=== PATIENT | male | born 1935 | race Caucasian/White ===

== ENCOUNTER 2016-11-05 10:02 | Observation (INO) | payer MEDICARE, OTHER ==
[~2016-11-05] VITALS: Ht 188 cm; Wt 86.4 kg
[~2016-11-05 10:02] MED LIST: AMLOPIDINE; AMLOPIDINE PO; ASPIRIN 81M81 MG/TA2 PO; BETAXOLOL HCL 55 ML OP; BETAXOLOL PO; CARAFATE 1GM1 G PO; CARAFATE PO; CIPRO; FERROUS SU325 MG/TAB PO; FLOMAX 0.40.4 MG/CAP PO; FOLIC ACID PO; LEVAQUIN 5500 MG/TA1 PO; LEVOTHYROXINE PO; LEVOTHYROXINE0.05 M1 PO; LISINOPRIL; LISINOPRIL20 MG PO; NEXIUM PO; NEXIUM40 MG PO; PROSCAR 5MG5 MG PO; PROSCAR PO; SUCRALFATE1 GM PO; VITAMIN C500 MG PO; ZOCOR; ZOCOR40 MG PO; ZYLOPRIM 100MG100 MG PO
[2016-11-05 12:04] VITALS: BP 152/85; PULSE 73; TEMP 97.6
[2016-11-05] MEDS ORDERED: ZOCOR 20MG20 MG PO (12:33)
[2016-11-05] MEDS ORDERED: MIRALAX PA17 GM/Dose PO (12:35)
[2016-11-05] MEDS ORDERED: MAG-OX 400400 MG/TAB PO (12:36)
[2016-11-05] MEDS ORDERED: ZANTAC 7575 MG PO (12:37)
[2016-11-05] MEDS ORDERED: MULTI VITAMINS1 TAB PO (12:38)
[2016-11-05] MEDS ORDERED: BREO IH (12:39)
[2016-11-05] MEDS ORDERED: RT SPIRIVA18 MCG IH (12:39)
[2016-11-05 14:20] VITALS: BP 159/86; PULSE 82; TEMP 97.7
[2016-11-05 17:43] VITALS: BP 136/88; PULSE 95; TEMP 98.5
[2016-11-05 21:12] VITALS: BP 126/81; PULSE 88; TEMP 98.2
[2016-11-06] VITALS (11 sets, daily range): BP systolic 105–167; BP diastolic 65–87; PULSE 61–104; TEMP 97.3–98
[2016-11-06 06:15] LABS: HEMATOCRIT 38.9 % (42.0-52.0); HEMOGLOBIN 13.2 g/dl (13.5-18.0); MEAN CELL VOLUME 91 fl (80.0-100.0); MEAN CORPUSCULAR HEMOGLOBIN 31 pg (27.0-31.0); MEAN CORPUSCULAR HGB CONC 34 g/dl (33.0-37.0); MEAN PLATELET VOLUME 8.8 fl (7.4-10.4); PLATELET COUNT 311 K/mm3 (130-400); RED BLOOD COUNT 4.26 M/mm3 (4.20-5.60); REDCELL DISTRIBUTION WIDTH-CV 13.1 % (11.5-14.5); WHITE BLOOD COUNT 5.5 K/mm3 (4.8-10.8)
[2016-11-06 06:31] LABS: ALBUMIN 3.6 gm/dL (3.5-5.0); BILIRUBIN,TOTAL 0.9 mg/dL (0.0-1.0); CALCIUM 9.7 mg/dL (8.4-10.2); CREATININE, serum 0.83 mg/dL (0.66-1.25); TOTAL PROTEIN 7.3 gm/dL (6.4-8.2)
[2016-11-06 07:56] LABS: INR 1.3 (0.8-3.0)
[2016-11-06 07:59] LABS: PH 7 (5-8); SQUAMOUS EPITHELIAL None Seen /hpf; URINE APPEARANCE Clear; URINE BACTERIA None Seen /hpf; URINE BILIRUBIN Negative (NEGATIVE); URINE BLOOD Negative (NEGATIVE); URINE COLOR Straw; URINE GLUCOSE Negative (NEGATIVE); URINE KETONE Negative (NEGATIVE); URINE RBC 0-2 /hpf; URINE WBC 0-2 /hpf
[2016-11-06 07:59] LABS: PARTIAL THROMBOPLASTIN TIME 29.8 SECONDS (26.0-37.0)
[2016-11-07] VITALS (7 sets, daily range): BP systolic 135–156; BP diastolic 79–94; PULSE 81–104; TEMP 97–98.2
[2016-11-07 05:15] LABS: PH 5 (5-8); SQUAMOUS EPITHELIAL 0-2 /hpf; URINE APPEARANCE Hazy; URINE BACTERIA None Seen /hpf; URINE BILIRUBIN Negative (NEGATIVE); URINE BLOOD Negative (NEGATIVE); URINE COLOR Amber; URINE GLUCOSE Negative (NEGATIVE); URINE KETONE Trace (NEGATIVE); URINE RBC 0-2 /hpf
[2016-11-07 06:03] LABS: HEMATOCRIT 38.1 % (42.0-52.0); HEMOGLOBIN 12.9 g/dl (13.5-18.0)
[2016-11-07 06:13] LABS: CALCIUM 9.2 mg/dL (8.4-10.2); CREATININE, serum 0.87 mg/dL (0.66-1.25); POTASSIUM 3.8 mmol/L (3.4-5.0)
[2016-11-08 01:51] VITALS: BP 159/85; PULSE 91; TEMP 98.5
[2016-11-08 05:45] VITALS: BP 158/86; PULSE 88; TEMP 98.6
[2016-11-08 10:00] VITALS: BP 113/76; PULSE 90; TEMP 97.7
== END 2016-11-08 14:25 | disposition home or self-care (01) ==
LOC: MEDICAL 10:02 → JCC 11:46
PROVIDERS: Nurse Practitioner Family; Surgery
DX: K80.12 Calculus of gallbladder with acute and chronic cholecystitis without obstruction (principal); I25.10 Atherosclerotic heart disease of native coronary artery without angina pectoris; J44.9 Chronic obstructive pulmonary disease, unspecified; K21.9 Gastro-esophageal reflux disease without esophagitis; I25.2 Old myocardial infarction; I10 Essential (primary) hypertension; E03.9 Hypothyroidism, unspecified; F17.210 Nicotine dependence, cigarettes, uncomplicated
CPT/HCPCS: 99223; 99223-AI; 99232-AI; G0378; G0379; G0463; J0690; J1100; J1170; J1956; J2270; J2405; J2704; J2710; J2765; J3010; J7030; J7042; J7120